=== PATIENT | male | born 1950 | race Caucasian/White ===

== ENCOUNTER 2023-10-13 00:28 | Emergency (ER) | payer MEDICARE, SELFPAY ==
[2023-10-13 00:34] VITALS: BP 145/97; PULSE 89; RESP 18; TEMP 36.9; O2SAT 97; BMI 33.0
--- NOTE | 2023-10-13 01:05 | XR_ITS ---
The [address] [address] Patient Name: NOVA HERNÁNDEZ MRN: [id number] date: 1950 Sex: M Assigned Patient Location: ER Current Patient Location: ED.MAIN Accession/Order Number: [id number] Exam Date: 10/13/2023 01:18 Report Date: 10/13/2023 01:44 At the request of: ANAI MARKER Procedure: XR chest 2V EXAMINATION:XR chest 2V INDICATION:cough COMPARISON:None TECHNIQUE:Frontal and lateral projections of the chest are submitted. FINDINGS: The cardiomediastinal silhouette is not enlarged. The pulmonary vascularity is within normal limits. A right-sided Mediport catheter is in place with the tip projecting over the mid superior vena cava. A left-sided vascular line is in place with the tip overlying the distal superior vena cava. There are nonspecific reticular nodular densities in the mid to lower lung crowder. There is no costophrenic angle blunting. XR/XR chest 2V IMPRESSION: Nonspecific reticular nodular densities in the mid to lower lung crowder possibly sequela to an infectious process. Electronically authenticated by: BENITO DELUNA Date: 10/13/2023 01:44
--- NOTE | 2023-10-13 01:05 | ED.GENADUL1 ---
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 His urine has been cloudy. He typically gets gastrointestinal symptoms when he is getting a urinary tract infection. He also had a AV fistula placed at [facility] on September [address] Shea. Since that time the left forearm distal to where the incision was placed for the AV fistula has been markedly erythematous, edematous and painful. He was prescribed Augmentin and Cipro as there was concern by his oncologist, who he sees due to a history of Stage 4 colon cancer that is currently in remission, that the arm may be infected with MRSA. He stopped taking the antibiotics last weekend. He started having some chills and nausea on Tuesday night with dry heaving and multiple episodes of diarrhea during the night. He was seen by his protection analyst yesterday morning and had labs drawn but a urine culture was unable to be obtained and he is referred to the ED for this purpose and for pain management of the left arm s/p AV fistula with possible infection or failure. He had COVID 19 at the end of August 2023 with subsequent COVID pneumonia. He is still coughing but denies any chest pain or shortness of breath. He is on Eliquis due to a history of PE while receiving chemotherapy. He had a follow up appt with the vascular surgery office in [place] last week and and US of the LUE was done at [facility] but he has not been informed of the results. He had a radical prostatectomy at [facility] last February and subsequently had stents placed into the transplanted kidney t [facility]. At this time most of his gastrointestinal symptoms has resolved he is not having severe diarrhea and is passing gas without severe abdominal pain. His nausea has resolved. He is tolerating oral fluids. Related Data Home Medications Medication Instructions Recorded Confirmed albuterol sulfate 90 mcg/actuation 2 inh inhalation Q4H PRN shortness 10/13/23 10/13/23 aerosol inhaler of breath or wheezing apixaban 2.5 mg tablet (Eliquis) 2.5 mg PO Q12H 10/13/23 10/13/23 cinacalcet 90 mg tablet 90 mg PO DAILY 10/13/23 10/13/23 metoprolol succinate 100 mg 100 mg PO DAILY 10/13/23 10/13/23 tablet,extended release 24 hr sevelamer carbonate 800 mg tablet 800 mg PO TID 10/13/23 10/13/23 torsemide 20 mg tablet 20 mg PO BID 10/13/23 10/13/23 Allergies Allergy/AdvReac Type Severity Reaction Status Date / Time tacrolimus AdvReac Unknown Verified 10/13/23 00:42 Review of Systems ROS Status of ROS 10 or more systems reviewed and unremarkable except as noted in history and below [facility] Social History Smoking status: Current every day smoker Exam Narrative Exam Narrative: Nurses note and vital signs reviewed and patient is not hypoxic. Blood pressure is mildly elevated at 145/97. General: Non toxic adult male, no resp distress, tolerating po fluids Skin: Pale, dry. There is no rash noted. Head: Normocephalic, atraumatic Eye: Normal conjunctiva, no drainage, EOMI. PERRL Ears, Nose, Mouth, and Throat: oral mucosa is slightly dry, no swelling of the tongue, uvula or pharyngeal soft tissues Cardiovascular: Regular Rate and [id number], no murmurs, rubs or gallops Respiratory: Patient is in no distress, no accessory muscle use, lungs are clear to auscultation, no wheezing, rales or rhonchi Back: non-tender, no CVA tenderness bilaterally to percussion. GI: Normal bowel sounds, large ventral hernia Musculoskeletal: The patient has no evidence of calf tenderness, no pitting edema, symmetrical pulses noted bilaterally LUE is red, warm and tender with dependant edema, a bruit/thrill is present proximal to the incision just below the antecubital fossa, radial pulse not palpable, LUE is 14.5cm, RUE is 11cm with normal capillary refill and pulses Neurological: A&O x4, normal speech Psychiatric: Cooperative Constitutional Vital Signs, click to edit/add: Last Vital Signs Temp 98.5 F 10/13/23 00:34 Pulse 80 10/13/23 02:51 Resp 20 10/13/23 02:51 BP 108/65 10/13/23 02:51 Pulse Ox 100 10/13/23 02:51 O2 Del Method Room Air 10/13/23 02:51 Course Vital Signs Vital signs: Vital Signs Temperature 98.5 F 10/13/23 00:34 Pulse Rate 89 10/13/23 00:34 Respiratory Rate 18 10/13/23 00:34 Blood Pressure 145/97 H 10/13/23 00:34 Pulse Oximetry 97 10/13/23 00:34 Oxygen Delivery Method Room Air 10/13/23 00:34 Temperature 98.5 F 10/13/23 00:34 Pulse Rate 80 10/13/23 02:51 Respiratory Rate 20 10/13/23 02:51 Blood Pressure 108/65 10/13/23 02:51 Pulse Oximetry 100 10/13/23 02:51 Oxygen Delivery Method Room Air 10/13/23 02:51 Medical Decision Making MDM Narrative Medical decision making narrative: this patient presents with nausea vomiting and diarrhea which is Often related to him having a urinary tract infection. He has been septic from this in the past year. He is status post kidney transplant, radical prosatectomy, transplanted kidney stenting and has a dialysis catheter for dialysis on Tuesdays and Saturdays. He had nausea with chills on Tuesday and diarrhea and dry heaves on Tuesday. He was seen by his protection analyst referred to the emergency department. He is also recovering from an AV fistula that was placed in his left upper extremity that appears to be either infected or failing. He has been on Cipro and Augmentin which was empirically treatment for this. In the emergency department his vital signs are stable. He recently had an ultrasound of the left upper extremity and does not know the results of it but likely it is not emergent or I believe that he would've been contacted. He is also on Eliquis Making deep vein thrombosis of the left upper extremity less likely. He was able to produce a urine that is positive for 50-75 white blood cells per high-power field, moderate leukocyte esterase and moderate red blood cells. He does have an indwelling stent in his transplanted kidney. Reluctant but agreeable to a repeat panel of blood work. He has a normal white count. Hemoglobin is stable. BUN was elevated at 48 Creatinine is 5.33. Lactic acid is normal at 1.8. This is consistent with his chronic renal insufficiency. His potassium is normal. He was medicated in emergency department with 3 g of IV Unasyn. He will be discharged home with prescription for Unasyn, Cipro, double coverage as recommended by his oncologist for possible staph infection in the left upper extremity as well as Percocet for the pain in his left upper extremity. I did review his OARRS report and there has been no activity since february 2023. Lab Data Labs: Lab Results 10/13/23 10/13/23 Range/Units 01:30 02:02 WBC 9.4 (4.0-11.0) 10^3/uL RBC 3.95 L (4.70-6.10) 10^6/uL Hgb 11.8 L (14.0-18.0) g/dL Hct 39.0 L (42.0-54.0) % MCV 98.7 H (80.0-94.0) fL MCH 29.9 (25.9-34.0) pg MCHC 30.3 (29.9-35.2) g/dL RDW 15.5 H (11.0-15.0) % Plt Count 255 (150-450) 10^3/uL MPV 9.5 (9.5-13.5) fL Neut % (Auto) 68.9 (43.0-75.0) % Lymph % (Auto) 12.3 L (20.5-60.0) % [place] % (Auto) 10.6 (1.7-12.0) % Eos % (Auto) 7.3 H (0.9-7.0) % Baso % (Auto) 0.5 (0.2-2.0) % Neut # (Auto) 6.5 (1.4-6.5) 10^3/uL Lymph # (Auto) 1.2 (1.2-3.8) 10^3/uL [place] # (Auto) 1.0 H (0.3-0.8) 10^3/uL Eos # (Auto) 0.7 (0.0-0.7) 10^3/uL Baso # (Auto) 0.1 (0.0-0.1) 10^3/uL Abs Immat Gran (auto) 0.04 H (0.00-0.03) 10^3/uL Imm/Tot Granulo (auto) 0.4 (0.0-0.5) % Sodium 137 (136-145) mmol/L Potassium 4.8 (3.5-5.1) mmol/L Chloride 100 (98-107) mmol/L Carbon Dioxide 24.7 (21.0-32.0) mmol/L Anion Gap 17.1 BUN 48.0 H (7.0-18.0) mg/dL Creatinine 5.33 H* (0.70-1.30) mg/dL Est GFR ( Amer) 13 L (>=60) Est GFR (Non-Af Amer) 11 L (>=60) BUN/Creatinine Ratio 9.0 Glucose 106 (74-106) mg/dL Lactate 1.8 (0.4-2.0) mmol/L Calcium 9.1 (8.5-10.1) mg/dL Total Bilirubin 0.4 (0.2-1.0) mg/dL AST 11 L (15-37) U/L ALT 10 L (16-63) U/L Alkaline Phosphatase 63 (46-116) U/L Total Protein 7.9 (6.4-8.2) g/dL Albumin 3.3 L (3.4-5.0) g/dL Globulin 4.6 g/dL Albumin/Globulin Ratio 0.7 Urine Color Yellow (YELLOW) Urine Clarity Clear (CLEAR) Urine pH 6.5 (5.0-9.0) Ur Specific [place] 1.015 (1.005-1.025) Urine Protein 100 A (NEG/TRACE) mg/dL Urine Glucose (UA) Negative (NEGATIVE) mg/dL Urine Ketones Negative (NEGATIVE) mg/dL Urine Occult Blood Large A (NEGATIVE) Urine Nitrite Negative (NEGATIVE) Urine Bilirubin Negative (NEGATIVE) Urine Urobilinogen 0.2 (0.2-1.0) EU/dL Ur Leukocyte Esterase Large A (NEGATIVE) Urine RBC 5-10 A (0-2) #/HPF Urine WBC 50-75 A (NONE SEEN) #/HPF Ur Squamous Epith Cells None seen (NONE/RARE) #/LPF Urine Crystals None seen (None Seen) #/HPF Urine Bacteria Moderate A (NONE SEEN) #/HPF Urine Casts None seen (NONE SEEN) #/LPF Urine Mucus None seen (NONE SEEN) Ur Culture Indicated? Already ordered Discharge Plan Discharge Chief Complaint: Nausea/Vomiting/Diarrhea Clinical Impression: Chronic renal disease, Acute UTI (urinary tract infection) Patient Disposition: Home, Self-Care Time of Disposition Decision: 02:51 Condition: Fair Prescriptions / Home Meds: No Action albuterol sulfate 90 mcg/actuation HFA aerosol inhaler 2 inh INHALATION Q4H PRN (Reason: shortness of breath or wheezing) metoprolol succinate 100 mg tablet extended release 24 hr 100 mg PO DAILY torsemide 20 mg tablet 20 mg PO BID Eliquis 2.5 mg tablet 2.5 mg PO Q12H sevelamer carbonate 800 mg tablet 800 mg PO TID cinacalcet 90 mg tablet 90 mg PO DAILY Instructions: Urinary Tract Infection in Men (ED), Dialysis Diet (DC) Stand Alone Forms: Portal Instructions
[2023-10-13 01:34] LABS: Bilirubin Urine NEGATIVE (NEGATIVE); Blood Urine LARGE (NEGATIVE); Clarity Urine CLEAR (CLEAR); Color Urine YELLOW (YELLOW); Glucose Urine UA NEGATIVE (NEGATIVE); Ketones Urine NEGATIVE (NEGATIVE); Leukocyte Esterase Urine LARGE (NEGATIVE); Nitrite Urine NEGATIVE (NEGATIVE); Protein Urine 100 mg/dL (NEG/TRACE); Specific Gravity Urine 1.015 (1.005-1.025); Urobilinogen Urine 0.2 EU/dL (0.2-1.0); pH Urine 6.5 (5.0-9.0)
[2023-10-13 01:44] LABS: WBC Urine 50-75 #/HPF (NONE SEEN)
[2023-10-13 01:45] LABS: Bacteria Urine MODERATE #/HPF (NONE SEEN); Cast Seen? NONE SEEN #/LPF (NONE SEEN); Crystals Seen? None Seen #/HPF (None Seen); Mucus Urine NONE SEEN (NONE SEEN); Squamous Epithelial Cell Urine NONE SEEN #/LPF (NONE/RARE); Urine Culture Indicated ALREADY ORDERED
[2023-10-13] MEDS: AMPICILLIN SODIUM/SULBACTAM NA 3 GM in 0.9 % SODIUM CHLORIDE 100 ML IV (02:14)
[2023-10-13 02:26] LABS: Basophils Absolute Auto 0.1 10^3/uL (0.0-0.1); Basophils Percent Auto 0.5 % (0.2-2.0); Eosinophils Absolute Auto 0.7 10^3/uL (0.0-0.7); Eosinophils Percent Auto 7.3 % (0.9-7.0); Hemoglobin 11.8 g/dL (14.0-18.0); Immature Granulocytes Abs Auto 0.04 10^3/uL (0.00-0.03); Immature Granulocytes Pct Auto 0.4 % (0.0-0.5); Lymphocytes Absolute Auto 1.2 10^3/uL (1.2-3.8); Lymphocytes Percent Auto 12.3 % (20.5-60.0); Mean Corpuscular HGB Conc 30.3 g/dL (29.9-35.2); Mean Corpuscular Hemoglobin 29.9 pg (25.9-34.0); Mean Corpuscular Volume 98.7 fL (80.0-94.0); Mean Platelet Volume 9.5 fL (9.5-13.5); Monocytes Percent Auto 10.6 % (1.7-12.0); Neutrophils Absolute Auto 6.5 10^3/uL (1.4-6.5); Neutrophils Percent Auto 68.9 % (43.0-75.0); Platelet Count 255 10^3/uL (150-450); Red Blood Count 3.95 10^6/uL (4.70-6.10); Red Cell Distribution Width 15.5 % (11.0-15.0); White Blood Count 9.4 10^3/uL (4.0-11.0)
[2023-10-13 02:38] LABS: Lactate/Lactic Acid 1.8 mmol/L (0.4-2.0)
[2023-10-13 02:40] LABS: Alanine Aminotransferase 10 U/L (16-63); Albumin Globulin Ratio 0.7; Albumin Level 3.3 g/dL (3.4-5.0); Alkaline Phosphatase 63 U/L (46-116); Anion Gap 17.1; Aspartate Amino Transferase 11 U/L (15-37); Bilirubin Total 0.4 mg/dL (0.2-1.0); Calcium 9.1 mg/dL (8.5-10.1); Carbon Dioxide 24.7 mmol/L (21.0-32.0); Chloride 100 mmol/L (98-107); Estimated GFR (African America 13 (>=60); Estimated GFR (Non-African Ame 11 (>=60); Globulin 4.6 g/dL; Glucose 106 mg/dL (74-106); Potassium 4.8 mmol/L (3.5-5.1); Sodium 137 mmol/L (136-145); Total Protein 7.9 g/dL (6.4-8.2)
[2023-10-13 02:51] VITALS: BP 108/65; PULSE 80; RESP 20; O2SAT 100
[2023-10-13] MEDS: OXYCODONE HCL/ACETAMINOPHEN 5MG/325MG 1 TAB PO (03:05)
--- NOTE | 2023-10-13 03:33 | PC.NURSE ---
charted in error.
== END 2023-10-13 03:08 | disposition home or self-care (01) ==
PROVIDERS: Emergency Provider Emergency Medicine; PCP Internal Medicine
DX: N39.0 Urinary tract infection, site not specified (principal); Z99.2 Dependence on renal dialysis; T86.12 Kidney transplant failure; Z87.440 Personal history of urinary (tract) infections; Z85.038 Personal history of other malignant neoplasm of large intestine; Z86.16 Personal history of COVID-19; Z79.01 Long term (current) use of anticoagulants; Z86.711 Personal history of pulmonary embolism; Z92.21 Personal history of antineoplastic chemotherapy; N18.6 End stage renal disease; Z90.79 Acquired absence of other genital organ(s); Z79.899 Other long term (current) drug therapy; F17.200 Nicotine dependence, unspecified, uncomplicated; K43.9 Ventral hernia without obstruction or gangrene; R60.0 Localized edema; M79.622 Pain in left upper arm
CPT/HCPCS: 36415; 51702; 71046; 80053; 81001; 83605; 85025; 87040; 87086; 96365; 99284; J0295